=== PATIENT | female | born 1995 | race Caucasian/White ===

== ENCOUNTER 2017-04-09 08:00 | Outpatient (CLI) | payer MEDICAID, OTHER | END 2017-04-09 08:01 | disposition home or self-care (01) | LOC: LAB.R 08:00 | PROVIDERS: ATTEND Nurse Practitioner Obstetrics & Gynecology | DX: Z11.3 Encounter for screening for infections with a predominantly sexual mode of transmission (principal) | CPT/HCPCS: 87491; 87591 ==

== ENCOUNTER 2017-08-04 15:22 | Outpatient (CLI) | payer MEDICAID ==
--- NOTE | 2017-08-05 11:12 | XRAY Report ---
RIGHT KNEE: 08/04/2017 COMPARISON: None. INDICATION: Anterior knee pain. TECHNIQUE: Four views of the right knee. FINDINGS: Normal alignment. No effusion. No acute bone findings. No degenerative changes. IMPRESSION: NEGATIVE KNEE. JOB #: [id number] JOB #: [id number] [email or web address]
== END 2017-08-04 15:23 | disposition home or self-care (01) ==
LOC: DI.S 15:22
PROVIDERS: ATTEND Nurse Practitioner Family
DX: M25.561 Pain in right knee (principal)

== ENCOUNTER 2018-02-07 11:00 | Outpatient (CLI) | payer MEDICAID | END 2018-02-07 11:01 | disposition home or self-care (01) | LOC: LAB.R 11:00 | PROVIDERS: ATTEND Nurse Practitioner Family | DX: L08.89 Other specified local infections of the skin and subcutaneous tissue (principal) | CPT/HCPCS: 87070; 87205 ==